=== PATIENT | female | born 1995 | race Caucasian/White ===

== ENCOUNTER 2017-11-16 17:16 | Emergency (ER) | payer BC ==
[~2017-11-16] VITALS: Ht 152.4 cm; Wt 82.6 kg
[2017-11-16 17:18] VITALS: TEMP 36.5; Ht 152.4 cm; Wt 82.6 kg
[2017-11-16] MEDS ORDERED: BUPIVACAINE 0.5 % 5 MG/1 ML MPF 30ML VIAL INFIL STA (17:33)
[2017-11-16] MEDS ORDERED: XYLOCAINE 1%/SOD BICARB 20 ML VIAL INFIL STA (17:33)
[2017-11-16] MEDS ORDERED: DIPHTHERIA/TETANUS/PERTUSSIS 0.5 ML SYR/VIAL IM. ONE (17:45)
--- NOTE | 2017-11-16 18:32 | EMERGENCY ROOM VISIT NOTE ---
ED Visit Note First contact with patient: 17:23 CHIEF COMPLAINT: Finger laceration HISTORY OF PRESENT ILLNESS: This [id number] 21-year-old female patient presents to the emergency department approximately 2 hours after cutting the left ring finger while slicing avocado. The patient states she was attempting to cut the pit out of the avocado, when the knife slipped, slicing the lateral aspect of the left ring finger. The bleeding has not stopped. Denies weakness or numbness of the finger. The patient has full range of motion of the fingers. The patient rates the pain as throbbing and for/10. The patient denies any other injuries. The patient's tetanus shot is not up to date. REVIEW OF SYSTEMS: A 6 system review of systems was completed with positives and pertinent negatives listed in the HPI. ALLERGIES: None MEDICATIONS: Lo Loestrin PMH: None SOCIAL HISTORY: The patient is a [id number] student. She lives locally with her roommates. She denies drug, alcohol, tobacco use. PHYSICAL EXAM: Vital Signs: Reviewed Nurse's notes, vital signs stable. GENERAL : This is a 21-year-old white female, in no acute distress, well developed, well nourished. SKIN: There is a 1 cm long laceration on the lateral aspect of the left ring finger extending from the proximal phalanx to the PIP joint. The edges gape apart with traction. There is no foreign material in the wound and it looks clean. There is minimal active bleeding. No deep structures such as tendons, bones, or significant blood vessels are seen in the base of the wound. Extension and flexion of the finger is full and strong. Full range of motion of the wrist and other fingers. Capillary refill less than 2 seconds. Normal sensation to light and sharp touch. EMERGENCY DEPARTMENT COURSE: I examined the patient. Verbal consent was obtained to perform the procedure. The procedure was performed by the physician assistant clinical director student under my direct supervision. Using sterile technique the wound was cleansed with Betadine. 4 ml of 1% buffered lidocaine was used to perform a digital block to anesthetize the patient. The area was sterilely draped. Once the patient was anesthetized, the wound was copiously irrigated under pressure with sterile saline. The wound was explored and there were no deep structures injured. The laceration was repaired using 3 simple interrupted 5-0 nylon sutures. The patient tolerated the procedure well. Hemostasis was achieved. The area was cleaned with sterile saline and dressed with bacitracin ointment and bandage. The patient was given a tetanus booster. The patient was discharged home in good condition. I attest that I have personally reviewed the patient's current medication list. Patient was found to have normal blood pressure on screening and does not require follow-up. Differential diagnosis includes laceration, contusion, fracture, sprain/strain, tendon or ligament injury, neurovascular compromise, foreign body, assault, and others DIAGNOSIS: Left ring finger laceration The chart was completed utilizing [employer] voice recognition software. Grammatical errors, random word insertions, pronoun errors, and incomplete sentences are an occasional consequence of this system due to software limitations, ambient noise, and hardware issues. Any formal questions or concerns about the content, text, or information contained within the body of this dictation should be directly addressed to the provider for clarification. Current/Historical Medications Scheduled Control Pills ( Control Pills), 1 TAB PO DAILY Vital Signs Date Time Temp Pulse Resp B/P (MAP) Pulse Ox O2 Delivery O2 Flow Rate FiO2 11/16/17 19:00 66 17 130/77 97 11/16/17 17:18 36.5 78 16 136/82 99 Room Air Medications Administered Medications (Trade) Dose Ordered Sig/Parker Route Start Time Stop Time Status Last Admin Dose Admin Diphtheria/ Pertussis/Tetanus Vacc (Adacel Inj) 0.5 ml ONCE ONCE IM. 11/16/17 17:45 11/16/17 17:46 DC 11/16/17 17:39 0.5 ML Departure Information Impression Primary Impression: Laceration of finger Dispostion Home / Self-Care Condition GOOD Referrals [facility] (PCP) Patient Instructions ED Laceration Ext Sutr Stap Tape, [facility] Additional Instructions You have received 3 sutures on your left ring finger. These sutures are NOT dissolvable and WILL need to be removed by a health care provider in 12-14 days. You can return to the Emergency Department or contact your Primary Care Provider to have the sutures removed. Proper wound care is essential for adequate wound healing and infection prevention. You can shower and clean the wound with soap and water. Do not scour over the wound, pat dry with a towel. Do not submerse the wound (i.e. bathe or dish wash) until the sutures have been removed. You can use an antibiotic ointment with a dressing over the wound for the next 3-4 days. After this time you may leave the wound dry and open to the air. If crust develops over the wound you can use a Q-tip to apply a 1:1 peroxide:water solution to clean the wound. Look for signs of infection of the wound including: increased pain, swelling, foul discharge, streaking, or increased temperature. If any of these are noticed you should return to the Emergency Department for further assessment and treatment. As with any laceration you may have received nerve damage to the surrounding tissues. This damage may or may not be permanent. You should keep the area covered with sunscreen for the first 6 months to 1 year when at risk for exposure to help minimize scarring. You can also use scar reducing creams or Vitamin E oil to help minimize scarring. Use the finger splint your provided to prevent excessive flexion or extension of the digit. You may remove the splint to bathe. For pain control, you can use the following ydro-ldf-btlryga medicines (if >12 yo): Ibuprofen(Motrin, Advil) may be used for fever or pain. Use 600mg every six hours as needed. Take with food. Avoid using more than 2400mg in a 24 hour period. Do not use 2400mg per day for more than three consecutive days without physician direction. Prolonged inappropriate use can lead to stomach upset or ulcers. (AND/OR) Acetaminophen(Tylenol) may be used for fever or pain. Use 1000mg every six hours as needed. Avoid using more than 3000mg in a 24 hour period. Return to the emergency department if your symptoms worsen despite treatment course outlined above. Problem Qualifiers Primary Impression: Laceration of finger Encounter type: initial encounter Finger: ring finger Damage to nail status : without damage Foreign body presence: without foreign body Laterality: left Qualified Codes: S61.215A - Laceration without foreign body of left ring finger without damage to nail, initial encounter
[2017-11-16] MEDS ORDERED: BCPILLS PO (18:33)
[2017-11-16 19:00] VITALS: BP 130/77; PULSE 66; O2SAT 97
== END 2017-11-16 19:01 | disposition home or self-care (01) ==
LOC: C.EDB 17:18 → C.EDD 19:01
DX: S61.215A Laceration without foreign body of left ring finger without damage to nail, initial encounter (principal); W26.0XXA Contact with knife, initial encounter; Y93.89 Activity, other specified; Y99.8 Other external cause status; Z23 Encounter for immunization

== ENCOUNTER → 2017-11-29 | Outpatient (CLI) | payer BC ==
[~2017-11-29] MED LIST: BCPILLS PO
== END | disposition home or self-care (01) ==
LOC: C.RDSM 08:30
PROVIDERS: ATTEND Orthopaedic Surgery
DX: S69.90XA Unspecified injury of unspecified wrist, hand and finger(s), initial encounter (principal); X58.XXXA Exposure to other specified factors, initial encounter